=== PATIENT | male | born 1995 ===

== ENCOUNTER 2019-03-11 05:00 | Emergency (ER) ==
[~2019-03-11] VITALS: Ht 185.4 cm; Wt 95.2 kg
[2019-03-11] MEDS ORDERED: TRAMADOL HCL50 MG PO (05:55)
== END 2019-03-11 06:10 | disposition home or self-care (01) ==
LOC: ED 05:00
DX: S02.2XXA Fracture of nasal bones, initial encounter for closed fracture (principal); F17.200 Nicotine dependence, unspecified, uncomplicated; Y04.0XXA Assault by unarmed brawl or fight, initial encounter
CPT/HCPCS: 70160; 99283